=== PATIENT | female | born 1980 | race Hispanic/Latino ===

== ENCOUNTER 2023-04-29 06:14 | Day surgery (SDC) | payer MEDICARE ==
[~2023-04-29] VITALS: Ht 160 cm; Wt 123.4 kg
[2023-04-29] VITALS (12 sets, daily range): BP systolic 104–157; BP diastolic 6–96; PULSE 61–83; RESP 12–16
[~2023-04-29 06:14] MED LIST: ATOR40TA69 PO; BACL10TA PO; CITA-107 PO; CLOP75TA32 PO; DOCU100C33 PO; FLUT16H NASAL; FURO40TA5 PO; INSU100V12 SQ; NAPR-1023 PO; OMEG100033 PO; SEMA1PEN3 SQ
[2023-04-29] MEDS ORDERED: PROPOFOL 10 MG/ML 20ML VIAL IV ONE ×2 (07:59→08:09)
== END 2023-04-29 09:45 | disposition home or self-care (01) ==
LOC: DAH 06:14 → ENDO 06:14
PROVIDERS: ATTEND Internal Medicine Gastroenterology
DX: R19.7 Diarrhea, unspecified (principal); R12 Heartburn; K31.89 Other diseases of stomach and duodenum; I10 Essential (primary) hypertension; E78.5 Hyperlipidemia, unspecified; E11.9 Type 2 diabetes mellitus without complications; E66.9 Obesity, unspecified; F32.A Depression, unspecified; E66.01 Morbid (severe) obesity due to excess calories; Z88.8 Allergy status to other drugs, medicaments and biological substances; Z86.73 Personal history of transient ischemic attack (TIA), and cerebral infarction without residual deficits; Z98.890 Other specified postprocedural states; Z79.899 Other long term (current) drug therapy; Z80.0 Family history of malignant neoplasm of digestive organs; Z68.42 Body mass index [BMI] 45.0-49.9, adult
CPT/HCPCS: 82948 ×2; 43239; 45380; 45385; J2704 ×2; A4620; A4215 ×2; A4223; A7002; A4222; A4221; A4663; J7030; A4606; J3490